=== PATIENT | male | born 1975 | race Caucasian/White ===

== ENCOUNTER 2021-03-14 20:23 | Emergency (ER) | payer OTHER ==
[~2021-03-14] VITALS: Ht 170.2 cm; Wt 95.5 kg
[~2021-03-14 20:23] MED LIST: AMBIEN10 MG PO; MOBIC7.5 MG PO
[2021-03-14 20:27] VITALS: Ht 170.2 cm; Wt 95.5 kg
[2021-03-14 21:09] LABS: BASOPHILS 0.3 % (0-2); EOSINOPHILS 0.1 % (0-7); HEMATOCRIT 44.7 % (42.0-54.0); HEMOGLOBIN 15.3 g/dL (13.5-17.5); MCH 29.6 pg (26.0-34.0); MCHC 34.3 g/dL (31.0-37.0); MCV 86.3 fL (80.0-100.0); MEAN PLATELET VOLUME 8.1 fL (7.4-10.4); MONOCYTES 8.5 % (2-11); NEUTROPHILS 80.1 % (40-80); PLATELET COUNT 224 10x3/uL (130-400); RBC 5.17 10x6/uL (4.20-6.10); RDW 12.6 % (11.5-14.5); WBC 8.6 10x3/uL (4.8-10.8)
[2021-03-14 21:17] LABS: BILIRUBIN NEGATIVE (NEGATIVE); KETONE SMALL mg/dL (NEGATIVE); NITRITE NEGATIVE (NEGATIVE); UROBILINOGEN NORMAL mg/dL (< 2)
[2021-03-14 21:18] LABS: BACTERIA FEW HPF (NONE SEEN); SQUAMOUS EPITHELIAL NONE SEEN HPF (0-4); WHITE CELLS - URINE 0-5 HPF (0-1)
[2021-03-14 21:25] LABS: CALC OSMOLALITY 277 mosm/kg (275-300); CALCIUM 9.1 mg/dL (8.5-10.1); CARBON DIOXIDE 28.4 mmol/L (21.0-32.0); CHLORIDE - SERUM 101 mmol/L (98-107); CREATININE - SERUM 1.2 mg/dL (0.6-1.3); GLUCOSE 115 mg/dL (74-106); POTASSIUM - SERUM 3.8 mmol/L (3.5-5.1); SODIUM 138 mmol/L (136-145); UREA NITROGEN 15 mg/dL (7-18); eGFR NON AFRICAN AMERICAN 69 mL/min (90-120)
[2021-03-14 21:35] LABS: ALKALINE PHOSPHATASE 90 U/L (30-120); ALT (SGPT) 27 U/L (10-68); AMYLASE - SERUM 57 U/L (25-115); LIPASE 107 U/L (73-393); PROTEIN - SERUM 7.5 g/dL (6.4-8.2)
[2021-03-14 21:41] LABS: TROPONIN-I < 0.017 ng/mL (0.000-0.060)
[2021-03-14] MEDS ORDERED: ZOFRAN ODT4 MG/UDTAB PO (21:51)
[2021-03-14 22:46] VITALS: BP 125/90
== END 2021-03-14 22:47 | disposition home or self-care (01) ==
LOC: D.ER 20:23
PROVIDERS: Family Medicine
DX: A08.4 Viral intestinal infection, unspecified (principal); R11.2 Nausea with vomiting, unspecified; R50.9 Fever, unspecified; R10.9 Unspecified abdominal pain